=== PATIENT | male | born 1960 | race Caucasian/White ===

== ENCOUNTER 2023-10-24 11:14 | Outpatient (RCR) | payer MEDICARE ==
[2023-10-24] MEDS ORDERED: LIDOCAINE VISC 2% SOLN 15 ML UDC ONE (13:20)
[2023-10-24] MEDS ORDERED: MUPIROCIN 2% OINT 22 GM TUBE ONE (13:20)
[2023-10-24 17:06] LABS: ALBUMIN 3.7 g/dL (3.5-5.0); ALBUMIN/GLOBULIN RATIO 1.2 (0.8-2.0); ANION GAP 15.5 mmol/L (8-16); BILIRUBIN,TOTAL 0.4 mg/dL (0.2-1.2); CREATININE, SERUM 1.3 mg/dL (0.72-1.25); POTASSIUM 3.5 mmol/L (3.5-5.1); TOTAL PROTEIN 6.9 g/dL (6.5-8.1)
== END 2023-10-28 09:35 | disposition home or self-care (01) ==
LOC: WCC 11:14
PROVIDERS: ATTEND Nurse Practitioner Family
DX: I87.311 Chronic venous hypertension (idiopathic) with ulcer of right lower extremity (principal); I87.312 Chronic venous hypertension (idiopathic) with ulcer of left lower extremity; L97.818 Non-pressure chronic ulcer of other part of right lower leg with other specified severity; L97.828 Non-pressure chronic ulcer of other part of left lower leg with other specified severity; R60.0 Localized edema
CPT/HCPCS: 36415; 80053

== ENCOUNTER → 2023-11-14 | Outpatient (REF) | payer MEDICARE | LOC: RAD 08:39 | PROVIDERS: ATTEND Nurse Practitioner Family | DX: I87.311 Chronic venous hypertension (idiopathic) with ulcer of right lower extremity (principal); I87.312 Chronic venous hypertension (idiopathic) with ulcer of left lower extremity; L97.818 Non-pressure chronic ulcer of other part of right lower leg with other specified severity; L97.828 Non-pressure chronic ulcer of other part of left lower leg with other specified severity; N18.9 Chronic kidney disease, unspecified; R60.0 Localized edema | CPT/HCPCS: 76770; 93306 ==